=== PATIENT | male | born 1965 | race Caucasian/White ===

== ENCOUNTER → 2017-09-05 | Emergency (ER) | payer OTHER ==
[~2017-09-05] VITALS: Ht 162.6 cm; Wt 90.7 kg
[~2017-09-05] MED LIST: AVAPRO75 MG; JANUMET 50-1,1 UDTAB; TORADOL10 MG PO; TRICOR48 MG
== END | disposition home or self-care (01) ==
LOC: ER 13:28
DX: M54.5 Low back pain (principal)

== ENCOUNTER → 2018-12-27 | Outpatient (CLI) | payer OTHER | END | disposition home or self-care (01) | LOC: NUCLEAR 08:00 | DX: M25.50 Pain in unspecified joint (principal); I10 Essential (primary) hypertension | CPT/HCPCS: 78306; A9503 ==

== ENCOUNTER 2019-07-24 09:21 | Emergency (ER) | payer OTHER ==
[~2019-07-24] VITALS: Ht 162.6 cm; Wt 95.3 kg
[2019-07-24] MEDS ORDERED: JARDIANCE10 MG PO (09:33)
[2019-07-24] MEDS ORDERED: LANTUS SOL100 UNIT/1 SQ (09:34)
[2019-07-24] MEDS ORDERED: AMOX-CLAV 875-1 EACH PO (11:21)
[2019-07-24] MEDS ORDERED: DICLOFENAC SODI50 MG PO (11:21)
[2019-07-24] MEDS ORDERED: INTESTINEX680 M2 PO (11:21)
== END 2019-07-24 11:49 | disposition home or self-care (01) ==
LOC: ER 09:21
DX: S61.422A Laceration with foreign body of left hand, initial encounter (principal); W26.8XXA Contact with other sharp object(s), not elsewhere classified, initial encounter; Y93.89 Activity, other specified; Y92.018 Other place in single-family (private) house as the place of occurrence of the external cause; Y99.8 Other external cause status

== ENCOUNTER 2020-05-02 19:31 | Emergency (ER) | payer OTHER ==
[~2020-05-02] VITALS: Ht 160 cm; Wt 95.3 kg
[~2020-05-02 19:31] MED LIST changes: +AMOX-CLAV 875-1 EACH PO; +DICLOFENAC SODI50 MG PO; +INTESTINEX680 M2 PO; +JARDIANCE10 MG PO; +LANTUS SOL100 UNIT/1 SQ
[2020-05-02] MEDS ORDERED: AMBIEN5 MG (20:00)
== END 2020-05-02 23:08 | disposition home or self-care (01) ==
LOC: ER 19:31
DX: R06.6 Hiccough (principal); Z03.818 Encounter for observation for suspected exposure to other biological agents ruled out

== ENCOUNTER 2020-05-18 00:16 | Emergency (ER) | payer OTHER ==
[~2020-05-18] VITALS: Ht 162.6 cm; Wt 95.3 kg
[~2020-05-18 00:16] MED LIST changes: +AMBIEN5 MG
[2020-05-18] MEDS ORDERED: JANUMET 50-1,01 EACH (00:27)
[2020-05-18] MEDS ORDERED: PEPCID AC20 MG PO (03:15)
[2020-05-18] MEDS ORDERED: CARAFATE1 GM PO (03:15)
[2020-05-18] MEDS ORDERED: PROTONIX40 MG PO (03:15)
[2020-05-18] MEDS ORDERED: THORAZINE25 MG PO (03:15)
== END 2020-05-18 03:35 | disposition home or self-care (01) ==
LOC: ER 00:16
DX: R06.6 Hiccough (principal); K29.70 Gastritis, unspecified, without bleeding; Z20.822 Contact with and (suspected) exposure to COVID-19

== ENCOUNTER 2020-08-31 10:39 | Emergency (ER) | payer OTHER ==
[~2020-08-31] VITALS: Ht 162.6 cm; Wt 79.4 kg
[~2020-08-31 10:39] MED LIST changes: +CARAFATE1 GM PO; +JANUMET 50-1,01 EACH; +PEPCID AC20 MG PO; +PROTONIX40 MG PO; +THORAZINE25 MG PO
== END 2020-08-31 16:14 | disposition home or self-care (01) ==
LOC: ER 10:39
DX: H57.09 Other anomalies of pupillary function (principal)

== ENCOUNTER 2020-09-30 15:01 | Emergency (ER) | payer OTHER ==
[~2020-09-30] VITALS: Ht 162.6 cm; Wt 78.5 kg
[2020-09-30] MEDS ORDERED: PROTONIX20 MG PO (20:41)
[2020-09-30] MEDS ORDERED: CARAFATE1 GM PO (20:41)
[2020-09-30] MEDS ORDERED: THORAZINE25 MG PO (20:41)
== END 2020-09-30 22:33 | disposition home or self-care (01) ==
LOC: ER 15:01
DX: K29.70 Gastritis, unspecified, without bleeding (principal)

== ENCOUNTER 2020-10-14 17:52 | Emergency (ER) | payer OTHER ==
[~2020-10-14] VITALS: Ht 162.6 cm; Wt 79.4 kg
[~2020-10-14 17:52] MED LIST changes: +PROTONIX20 MG PO
[2020-10-14] MEDS ORDERED: CARAFATE1 GM PO (21:39)
[2020-10-14] MEDS ORDERED: THORAZINE25 MG PO (21:39)
[2020-10-14] MEDS ORDERED: PROTONIX20 MG PO (21:39)
== END 2020-10-14 22:23 | disposition home or self-care (01) ==
LOC: ER 17:52
DX: K29.70 Gastritis, unspecified, without bleeding (principal); K20.90 Esophagitis, unspecified without bleeding; I10 Essential (primary) hypertension

== ENCOUNTER 2020-11-30 20:17 | Emergency (ER) | payer OTHER ==
[~2020-11-30] VITALS: Ht 162.6 cm; Wt 70.3 kg
[2020-11-30] MEDS ORDERED: THORAZINE25 MG PO (22:23)
== END 2020-11-30 22:28 | disposition home or self-care (01) ==
LOC: ER 20:17
DX: R06.6 Hiccough (principal)

== ENCOUNTER 2021-07-18 13:23 | Emergency (ER) | payer OTHER ==
[~2021-07-18] VITALS: Ht 162.6 cm; Wt 84.8 kg
[2021-07-18] MEDS ORDERED: ULTRACET PO (14:49)
== END 2021-07-18 15:25 | disposition home or self-care (01) ==
LOC: ER 13:23
DX: L02.212 Cutaneous abscess of back [any part, except buttock and flank] (principal)

== ENCOUNTER 2021-11-10 15:18 | Emergency (ER) | payer OTHER ==
[~2021-11-10] VITALS: Ht 162.6 cm; Wt 81.6 kg
[~2021-11-10 15:18] MED LIST changes: +ULTRACET PO
== END 2021-11-10 21:24 | disposition home or self-care (01) ==
LOC: ER 15:18
DX: R41.82 Altered mental status, unspecified (principal); T40.5X5A Adverse effect of cocaine, initial encounter; F19.10 Other psychoactive substance abuse, uncomplicated; E11.65 Type 2 diabetes mellitus with hyperglycemia; Z79.84 Long term (current) use of oral hypoglycemic drugs; I10 Essential (primary) hypertension; G47.30 Sleep apnea, unspecified

== ENCOUNTER 2022-06-18 08:20 | Outpatient (CLI) | payer OTHER | END 2022-06-18 08:30 | disposition home or self-care (01) | LOC: SONOGRAMA 08:20 | PROVIDERS: ATTEND Internal Medicine | DX: R10.9 Unspecified abdominal pain (principal) ==

== ENCOUNTER 2022-10-12 16:08 | Emergency (ER) | payer OTHER ==
[~2022-10-12] VITALS: Ht 162.6 cm; Wt 73.0 kg
[2022-10-12] MEDS ORDERED: DICY20TA PO (22:32)
[2022-10-12] MEDS ORDERED: INTESTINEX680 M1 PO (22:32)
[2022-10-12] MEDS ORDERED: PEPCID AC20 MG PO (22:32)
== END 2022-10-12 22:38 | disposition home or self-care (01) ==
LOC: ER 16:08
DX: R10.9 Unspecified abdominal pain (principal); K62.5 Hemorrhage of anus and rectum; E11.65 Type 2 diabetes mellitus with hyperglycemia; Z79.84 Long term (current) use of oral hypoglycemic drugs

== ENCOUNTER 2022-12-27 13:48 | Emergency (ER) | payer OTHER ==
[~2022-12-27] VITALS: Ht 162.6 cm; Wt 73.0 kg
[~2022-12-27 13:48] MED LIST changes: +DICY20TA PO; +INTESTINEX680 M1 PO
== END 2022-12-27 14:55 | disposition home or self-care (01) ==
LOC: ER 13:48
DX: R06.6 Hiccough (principal)

== ENCOUNTER 2022-12-27 18:53 | Emergency (ER) | payer OTHER ==
[~2022-12-27] VITALS: Ht 167.6 cm; Wt 74.8 kg
== END 2022-12-27 21:48 | disposition home or self-care (01) ==
LOC: ER 18:53
DX: R06.6 Hiccough (principal)

== ENCOUNTER 2023-02-03 07:18 | Outpatient (CLI) | payer OTHER | END 2023-02-03 07:57 | disposition home or self-care (01) | LOC: SONOGRAMA 07:18 | PROVIDERS: ATTEND Internal Medicine Gastroenterology | DX: K76.0 Fatty (change of) liver, not elsewhere classified (principal) ==